=== PATIENT | male | born 1970 | race Caucasian/White ===

== ENCOUNTER → 2018-01-30 09:00 | Outpatient (CLI) | payer OTHER, SELFPAY ==
[2018-01-30 09:33] LABS: Add Manual Diff / Slide Review NO; Basophils Percent Auto 1.4 % (0-2); Eosinophils Percent Auto 1.3 % (2-4); Hematocrit 39.7 % (41-53); Hemoglobin 13.5 g/dL (13.5-17.5); Lymphocytes Percent Auto 27.1 % (25-40); Mean Corpuscular HGB Conc 33.9 % (30-36); Mean Corpuscular Hemoglobin 29.5 PG (26-34); Mean Corpuscular Volume 86.9 fL (80-100); Neutrophils Absolute Auto 3100 /uL (3000-5900); Neutrophils Percent Auto 58.2 % (50-75); Platelet Count 256 X10^3/uL (150-400); Red Blood Cell Count 4.57 X10^6/uL (4.5-5.9); Red Cell Distribution Width 12.9 % (11.6-14.8); White Blood Cell Count 5.4 X10^3/uL (4.5-11.0)
[2018-01-30 10:04] LABS: Alanine Aminotransferase 40 IU/L (21-72); Albumin 4.6 g/dL (3.5-5.0); Albumin Globulin Ratio 1.6 (1.0-2.8); Alkaline Phosphatase 79 U/L (38-126); Aspartate Aminotransferase 29 IU/L (17-59); BUN Creatinine Ratio 17.5 (6-22); Bilirubin Total 0.6 mg/dL (0.2-1.3); Blood Urea Nitrogen 14 mg/dL (9-20); Calcium 9.4 mg/dL (8.4-10.2); Carbon Dioxide 23 mmol/L (22-32); Chloride 105 mmol/L (98-107); Cholesterol 133 mg/dL (140-199); Estimated Glomerular Filt Rate > 60.0 mL/min (>60); Globulin 2.8 g/dL (1.7-4.1); Glucose 101 mg/dL (70-100); HDL Cholesterol 73 mg/dL (40-60); HEMOLYSIS < 15 (0-50); LDL Cholesterol Calculated 50 mg/dL (<100); Potassium 4.4 mmol/L (3.4-5.1); Sodium 143 mmol/L (137-145); Total Protein 7.4 g/dL (6.3-8.2); Triglycerides 48 mg/dL (35-150)
[2018-01-30 10:31] LABS: Prostate Specific Antigen Scrn 1.47 ng/mL (0.1-4.0)
[2018-01-30 10:34] LABS: Thyroid Stimulating Hormone 1.18 uIU/mL (0.47-4.68)
== END ==
PROVIDERS: PCP Family Medicine; Visit Provider Family Medicine
DX: Z00.00 Encounter for general adult medical examination without abnormal findings (principal); E78.5 Hyperlipidemia, unspecified; Z12.5 Encounter for screening for malignant neoplasm of prostate
CPT/HCPCS: 36415; 80053; 80061; 84443; 85025; G0103

== ENCOUNTER → 2018-05-13 16:26 | Outpatient (CLI) | payer OTHER, SELFPAY ==
--- NOTE | 2018-05-13 16:36 | DI.RAD.S_ITS ---
PROCEDURE: XR FINGER LT MIN 2V INDICATIONS: foreign body visualization TECHNIQUE: AP hand, 2 views of the 2nd finger(s) acquired. COMPARISON: None. FINDINGS: Bones: There is a fishhook seen along the dorsal radial aspect of the distal interphalangeal joint of the 2nd finger. No definite bony involvement is seen. Soft tissues: No suspicious soft tissue calcifications. IMPRESSION: [place] involving the distal left 2nd finger, which does not appear to involve bone. Dictated by: Callum Chadwick M.D. on 05/13/2018 at 16:53 Approved by: Callum Chadwick M.D. on 05/13/2018 at 16:54
== END ==
PROVIDERS: Family Provider Family Medicine; PCP Family Medicine; Visit Provider Physician Assistant
DX: S60.451A Superficial foreign body of left index finger, initial encounter (principal)
CPT/HCPCS: 73140

== ENCOUNTER → 2019-09-30 11:05 | Outpatient (CLI) | payer OTHER, SELFPAY ==
[2019-09-30 12:38] LABS: Alanine Aminotransferase 83 IU/L (<50); Albumin Globulin Ratio 1.6 (1.0-2.8); Alkaline Phosphatase 79 U/L (38-126); Aspartate Aminotransferase 63 IU/L (17-59); BUN Creatinine Ratio 16.7 (6-22); Bilirubin Total 0.8 mg/dL (0.2-1.3); Blood Urea Nitrogen 15 mg/dL (9-20); Calcium 9.8 mg/dL (8.4-10.2); Carbon Dioxide 25 mmol/L (22-32); Chloride 102 mmol/L (98-107); Cholesterol 163 mg/dL (140-199); Estimated Glomerular Filt Rate > 60.0 mL/min (>60); Globulin 3.2 g/dL (1.7-4.1); Glucose 104 mg/dL (70-100); HDL Cholesterol 48 mg/dL (40-60); HEMOLYSIS < 15 (0-50); LDL Cholesterol Calculated 97 mg/dL (<100); Potassium 4.1 mmol/L (3.4-5.1); Sodium 141 mmol/L (137-145); Total Protein 8.2 g/dL (6.3-8.2); Triglycerides 91 mg/dL (35-150)
[2019-09-30 12:39] LABS: Add Manual Diff / Slide Review NO; Basophils Absolute Auto 100 /uL (0-100); Basophils Percent Auto 1.4 % (0-2); Eosinophils Absolute Auto 100 /uL (0-450); Eosinophils Percent Auto 1.3 % (2-4); Hematocrit 40.8 % (41-53); Lymphocytes Absolute Auto 1400 /uL (1100-4500); Lymphocytes Percent Auto 27.9 % (25-40); Mean Corpuscular HGB Conc 34.4 % (30-36); Mean Corpuscular Hemoglobin 29.8 PG (26-34); Mean Corpuscular Volume 86.5 fL (80-100); Monocytes Absolute Auto 700 /uL (0-900); Neutrophils Absolute Auto 2800 /uL (1500-7000); Neutrophils Percent Auto 56.4 % (50-75); Platelet Count 232 X10^3/uL (150-400); Red Blood Cell Count 4.72 X10^6/uL (4.5-5.9); Red Cell Distribution Width 13.1 % (11.6-14.8)
[2019-09-30 13:02] LABS: Prostate Specific Antigen Scrn 1.62 ng/mL (0.1-4.0)
== END ==
PROVIDERS: Family Provider Family Medicine; PCP Family Medicine; Referring Provider Family Medicine; Visit Provider Family Medicine
DX: Z00.00 Encounter for general adult medical examination without abnormal findings (principal); E78.5 Hyperlipidemia, unspecified; Z12.5 Encounter for screening for malignant neoplasm of prostate; Z13.0 Encounter for screening for diseases of the blood and blood-forming organs and certain disorders involving the immune mechanism; Z13.1 Encounter for screening for diabetes mellitus; Z13.6 Encounter for screening for cardiovascular disorders
CPT/HCPCS: 36415; 80053; 80061; 85025; G0103

== ENCOUNTER → 2020-07-31 08:25 | Outpatient (CLI) | payer OTHER, SELFPAY ==
[2020-07-31 09:21] LABS: Add Manual Diff / Slide Review NO; Basophils Absolute Auto 100 /uL (0-100); Basophils Percent Auto 1.5 % (0-2); Eosinophils Absolute Auto 100 /uL (0-450); Eosinophils Percent Auto 2.5 % (2-4); Hematocrit 39.4 % (41-53); Hemoglobin 13.1 g/dL (13.5-17.5); Lymphocytes Absolute Auto 1400 /uL (1100-4500); Lymphocytes Percent Auto 27.6 % (25-40); Mean Corpuscular HGB Conc 33.2 % (30-36); Mean Corpuscular Volume 87.4 fL (80-100); Monocytes Absolute Auto 600 /uL (0-900); Monocytes Percent Auto 11.1 % (3-14); Neutrophils Absolute Auto 2900 /uL (1500-7000); Neutrophils Percent Auto 57.3 % (50-75); Platelet Count 230 X10^3/uL (150-400); Red Blood Cell Count 4.51 X10^6/uL (4.5-5.9); Red Cell Distribution Width 13.1 % (11.6-14.8); White Blood Cell Count 5.1 X10^3/uL (4.5-11.0)
[2020-07-31 09:37] LABS: Alanine Aminotransferase 36 IU/L (<50); Albumin 4.5 g/dL (3.5-5.0); Albumin Globulin Ratio 1.6 (1.0-2.8); Alkaline Phosphatase 86 U/L (38-126); Aspartate Aminotransferase 31 IU/L (17-59); BUN Creatinine Ratio 17.1 (6-22); Bilirubin Total 0.5 mg/dL (0.2-1.3); Blood Urea Nitrogen 14 mg/dL (9-20); Calcium 9.4 mg/dL (8.4-10.2); Carbon Dioxide 25 mmol/L (22-32); Chloride 107 mmol/L (98-107); Cholesterol 141 mg/dL (140-199); Estimated Glomerular Filt Rate > 60.0 mL/min (>60); Globulin 2.8 g/dL (1.7-4.1); Glucose 111 mg/dL (70-100); HDL Cholesterol 63 mg/dL (40-60); HEMOLYSIS < 15 (0-50); LDL Cholesterol Calculated 63 mg/dL (<100); Potassium 4.2 mmol/L (3.4-5.1); Sodium 140 mmol/L (137-145); Total Protein 7.3 g/dL (6.3-8.2); Triglycerides 73 mg/dL (35-150)
[2020-07-31 10:02] LABS: Prostate Specific Antigen Scrn 1.41 ng/mL (0.1-4.0)
== END ==
PROVIDERS: Family Provider Family Medicine; PCP Family Medicine; Referring Provider Family Medicine; Visit Provider Family Medicine
DX: Z12.5 Encounter for screening for malignant neoplasm of prostate (principal); E78.5 Hyperlipidemia, unspecified; Z13.6 Encounter for screening for cardiovascular disorders
CPT/HCPCS: 36415; 80053; 80061; 85025; G0103

== ENCOUNTER → 2020-08-07 09:51 | Outpatient (CLI) | payer OTHER, SELFPAY | PROVIDERS: Family Provider Family Medicine; PCP Family Medicine; Referring Provider Family Medicine; Visit Provider Family Medicine | DX: R73.9 Hyperglycemia, unspecified (principal) | CPT/HCPCS: 36415; 83036 ==

== ENCOUNTER → 2020-11-01 10:09 | Outpatient (CLI) | payer OTHER, SELFPAY ==
[2020-11-01 11:15] LABS: Add Manual Diff / Slide Review NO; Basophils Absolute Auto 100 /uL (0-100); Basophils Percent Auto 1.8 % (0-2); Eosinophils Absolute Auto 100 /uL (0-450); Eosinophils Percent Auto 1.5 % (2-4); Hematocrit 42.6 % (41-53); Hemoglobin 14.2 g/dL (13.5-17.5); Lymphocytes Absolute Auto 1200 /uL (1100-4500); Lymphocytes Percent Auto 24.5 % (25-40); Mean Corpuscular HGB Conc 33.2 % (30-36); Mean Corpuscular Hemoglobin 29.3 PG (26-34); Mean Corpuscular Volume 88.2 fL (80-100); Monocytes Absolute Auto 700 /uL (0-900); Monocytes Percent Auto 14.7 % (3-14); Neutrophils Absolute Auto 2900 /uL (1500-7000); Neutrophils Percent Auto 57.5 % (50-75); Platelet Count 247 X10^3/uL (150-400); Red Blood Cell Count 4.83 X10^6/uL (4.5-5.9); Red Cell Distribution Width 13.2 % (11.6-14.8)
[2020-11-01 12:03] LABS: TSH w/ Reflex to FT4 1.88 uIU/mL (0.47-4.68)
== END ==
PROVIDERS: Family Provider Family Medicine; PCP Family Medicine; Referring Provider Family Medicine; Visit Provider Family Medicine
DX: R00.2 Palpitations (principal)
CPT/HCPCS: 36415; 84443; 85025

== ENCOUNTER → 2020-11-07 09:33 | Outpatient (CLI) | payer OTHER, SELFPAY ==
[2020-11-08 08:45] LABS: Fecal Immunochemical Test Negative (Negative)
--- NOTE | 2020-12-05 11:10 | PM.CARDMON.1 ---
Distance Learning Technician Report Referral & Results Date Patient Seen: 11/07/20 Requesting provider: Tez Alberts Indication: Palpitations Duration of monitoring (days): 14 Diary information: there were 24 patient triggered events and no patient diary entries Patient triggered events were associated with (within 45 seconds) sinus rhythm, PVCs, and ventricular trigeminy Data: minimum heart rate identified was 51 beats per minute at 06:38 on 11/11/2020 Maximum heart rate was 165 beats per minute at 06:48 on 11/13/2020 Less than 1% of identified beats were ventricular or supraventricular ectopic in origin, which would classify them as rare. 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 Given patient triggered events patient's symptoms may well be due to PVCs although these were rare during this monitoring period.
== END ==
PROVIDERS: Family Provider Family Medicine; PCP Family Medicine; Referring Provider Family Medicine; Visit Provider Family Medicine
DX: R00.2 Palpitations (principal); R73.9 Hyperglycemia, unspecified
CPT/HCPCS: 82274; 93246; 93248

== ENCOUNTER → 2020-12-18 09:04 | Outpatient (CLI) | payer OTHER, SELFPAY ==
[2020-12-18 10:29] LABS: COVID19 -Nasal RAPID Negative (Negative)
== END ==
PROVIDERS: Family Provider Family Medicine; PCP Family Medicine; Visit Provider Specialist
DX: Z20.822 Contact with and (suspected) exposure to COVID-19 (principal)
CPT/HCPCS: 87635; C9803

== ENCOUNTER 2020-12-19 06:40 | Day surgery (SDC) | payer OTHER, SELFPAY ==
[2020-12-18 08:20] VITALS: BMI 32.3
[2020-12-19] VITALS (25 sets, daily range): BP systolic 128–158; BP diastolic 83–94; PULSE 64–86; RESP 12–19; TEMP 36.2–37.3; O2SAT 94–98; BMI 30.9
--- NOTE | 2020-12-19 | PATH_ITS ---
[facility] Accession Number: [id number] . 01 Material submitted: . PART A: hemorrhoids - LEFT LATERAL HEMORRHOID PART B: hemorrhoids - RIGHT LATERAL HEMORRHOID PART C: hemorrhoids - ANTERIOR MIDLINE HEMORRHOID PART D: hemorrhoids - POSTERIOR MIDLINE HEMORRHOID . 02 Diagnosis: A. Left Lateral Hemorrhoid, Biopsy: Consistent with hemorrhoidal tissue. No evidence of neoplasia. . B. Right Lateral Hemorrhoid, Biopsy: Consistent with hemorrhoidal tissue. No evidence of neoplasia. . C. Anterior Midline Hemorrhoid, Biopsy: Consistent with hemorrhoidal tissue. No evidence of neoplasia. . D. Posterior Midline Hemorrhoid, Biopsy: Consistent with hemorrhoidal tissue. No evidence of neoplasia. [facility] 12/25/2020 1109 Local . 02 Electronically signed: . Nancy Neville MD, Pathologist NPI- [id number] . 01 Gross description: . Part A: LEFT LATERAL HEMORRHOID: Received in formalin is 1 fragment of marquez soft tissue measuring 2.0 x 1.5 x 1.8 cm. Tissue is inked. Specimen is sectioned and submitted in technical services representative sections in 1 cassette. Part B: RIGHT LATERAL HEMORRHOID: Received in formalin is 1 fragment of marquez soft tissue measuring 2.4 x 1.5 x 0.6 cm. Tissue is inked. Specimen is sectioned and submitted in technical services representative sections in 1 cassette. Part C: ANTERIOR MIDLINE HEMORRHOID: Received in formalin is 1 fragment of marquez soft tissue measuring 2.0 x 1.0 x 1.1 cm. Tissue is inked. Specimen is sectioned and submitted in technical services representative sections in 1 cassette. Part D: POSTERIOR MIDLINE HEMORRHOID: Received in formalin is 1 fragment of marquez soft tissue measuring 2.2 x 1.1 x 0.6 cm. Tissue is inked. Specimen is sectioned and submitted in technical services representative sections in 1 cassette. /ELVIN 12/21/2020 [facility]3 Local . 02 Pathologist provided ICD-10: K64.9 . 02 CPT . 762883, 268647, 465564, 348988 Performed at: 01 [facility] [address] [id number] MD Franc Dudley MD Phone: [phone] Performed at: 02 [facility] [address] [place] [id number] MD Nancy Neville MD Phone: [phone]
[2020-12-19] MEDS: LACTATED RINGERS 1,000 ML 42 ML IV (07:30)
[2020-12-19] MEDS: ACETAMINOPHEN 325 MG TABLET 975 MG PO (07:30)
--- NOTE | 2020-12-19 07:39 | PM.PREOP ---
Pre-operative Note COVID-19 COVID-19 status: Negative Result date/Date tested (Pos, Neg/Pending): 12/18/20 Interval Note History & Physical reviewed/Exam performed by Physician: Yes Changes to H&P: No
--- NOTE | 2020-12-19 08:19 | SUR.OPER ---
Prone on padded OR bed, head in foam head support, gel chest rolls, gel pad under knees, pillow under lower legs, toes free of pressure, arms secured on padded arm boards at <90 degrees abduction. Safety belt at thigh.
[2020-12-19] MEDS: LIDOCAINE 1% W/EPI 20 ML INJ (08:29)
[2020-12-19] MEDS: DIBUCAINE 1% OINT 28 GM 1 APPLIC TOP (08:32)
--- NOTE | 2020-12-19 09:25 | P.OP_ITS ---
Operative Date/Time/Diagnoses Date of procedure: 12/19/20 Time of procedure: 09:25 Pre-op diagnosis: Internal and external hemorrhoids. Post-op diagnosis: same Procedure & Clinicians Procedure: Four column hemorrhoidectomy Same procedure as scheduled: Yes Indications: Large external and internal hemorrhoids. Surgeon: Wally Duarte Click Yes if Unassisted: Yes Anesthesia Type: General Operative Notes Findings: Four columns removed. See details below. Closure Type: not applicable Specimen(s): other (Hemorrhoids) Prosthetic devices, grafts, tissues, transplants, or devices: None Estimated Blood Loss (mL): 150 Blood products transfused: none Procedure in detail: Patient is placed back knife prone on the operating room table after undergoing general endotracheal anesthesia. He was prepped and drap ed in the usual fashion. Visibly add very large external hemorrhoids. No palpable masses on rectal exam. Circumferential exam with an a bivalve anoscope showed for large columns of hemorrhoids. These were located in the anterior and posterior midline and in the right lateral and left lateral locations. Beginning with the largest in the left lateral location a 2 0 Vicryl was placed at the head of the hemorrhoidal column. Incision was made in the anal derm to preserve as much as possible but to remove the large tag that was present. The hemorrhoid was dissected off the underlying sphincter muscle and was excised. The defect created was closed with a running 2-0 Vicryl which had been placed at the head of the column. Attention was turned to the other 3 columns. These were removed in an identical fashion to the 1st. Closure was in an identical fashion as well. After irrigating additional sutures were placed to control any bleeding. This was using 2 0 Vicryl. I re-prepped the perianal skin with Betadine and injected a total of 20 cc of 1% lidocaine with epinephrine in the operative areas. There was no ongoing bleeding. Dressing was applied after inserting Nupercainal on Gelfoam into the anal canal. Patient was placed back on his stretcher, extubated taken recovery room good condition. Complications: none Post-operative Condition: stable Disposition: PACU Plan for aftercare: Follow-up in the office
[2020-12-19] MEDS: hydrOXYzine pamoate 25 MG CAPSULE PO (09:34)
[2020-12-19] MEDS: ONDANSETRON 4 MG/2 ML INJ IV (09:34)
[2020-12-19] MEDS: OXYCODONE IR 5 MG TABLET PO ×2 (09:35→10:05)
--- NOTE | 2020-12-19 09:51 | SUR.PHASEI ---
Addendum entered by Beulah Pearson R.N. 12/19/20 10:13: injury is to bilat. cheeks on face. Original Note: 0921 pt. arrived to phase 1 and was noted by anesthesiologist and this nurse to have some small, scattered, red surface abrasions from the tape for the ETT. no acute distress, no blistering, no bruising. ongoing monitoring.
[2020-12-19] MEDS: HYDROMORPHONE 2 MG INJ IV ×2 (10:33→11:01)
--- NOTE | 2020-12-19 10:42 | SUR.PHASEI ---
1025 pt. returned to phase 1 due to needing a dose of IV pain meds.
--- NOTE | 2020-12-19 10:59 | SUR.PHASEI ---
1036 - Pt returned to PACU for pain control.
--- NOTE | 2020-12-19 11:33 | SUR.PHASEI ---
1131 transferred back to phase 2, pt. report much relief of rectal pain, states 10/31, he wants to go home and sleep. ongoing monitoring until discharged.
== END 2020-12-19 11:54 | disposition home or self-care (01) ==
PROVIDERS: Family Provider Family Medicine; PCP Family Medicine; Referring Provider Family Medicine; Visit Provider Specialist
PROC: (CPT 46260; principal; 2020-12-19 07:45)
DX: K64.4 Residual hemorrhoidal skin tags (principal); K64.8 Other hemorrhoids; E78.00 Pure hypercholesterolemia, unspecified; G47.30 Sleep apnea, unspecified; Z87.891 Personal history of nicotine dependence
CPT/HCPCS: 46260; J0330; J1100; J1170; J2250; J2405; J2704; J3010

== ENCOUNTER → 2021-03-19 10:12 | Outpatient (CLI) | payer OTHER, SELFPAY ==
[2021-03-19 10:59] LABS: COVID19 -Nasal RAPID Negative (Negative)
== END ==
PROVIDERS: Family Provider Family Medicine; PCP Family Medicine; Visit Provider Specialist
DX: Z20.822 Contact with and (suspected) exposure to COVID-19 (principal)
CPT/HCPCS: 87635; C9803

== ENCOUNTER 2021-03-22 12:26 | Day surgery (SDC) | payer OTHER, SELFPAY ==
[2021-03-12 14:23] VITALS: BMI 32.1
[2021-03-22] VITALS (9 sets, daily range): BP systolic 126–153; BP diastolic 81–99; PULSE 60–76; RESP 9–18; TEMP 36.4–37; O2SAT 98–100; BMI 32.1
[2021-03-22] MEDS: LACTATED RINGERS 1,000 ML 100 ML IV (12:55)
--- NOTE | 2021-03-22 13:53 | PM.PREOP ---
Pre-operative Note COVID-19 COVID-19 status: Negative Result date/Date tested (Pos, Neg/Pending): 03/21/21 Interval Note History & Physical reviewed/Exam performed by Physician: Yes Changes to H&P: No
[2021-03-22] MEDS: BUPIVACAINE 0.25% W/ EPI 30 ML VIAL INJ (14:20)
[2021-03-22] MEDS: DIBUCAINE 1% OINT 28 GM 1 APPLIC TOP (14:21)
--- NOTE | 2021-03-22 14:54 | SUR.PHASEI ---
Dozing intermittently, denies pain/nausea. Encouraged to sleep since he just arrived in the PACU. Resp unlabored
--- NOTE | 2021-03-22 14:54 | PM.OP.1 ---
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 Same procedure as scheduled: Yes Indications: Chronic drainage after and hemorrhoidectomy. Had a nonhealing area and was suspected to have a fistula. 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 Superficial in nature. Closure Type: not applicable Prosthetic devices, grafts, tissues, transplants, or devices: None Estimated Blood Loss (mL): 10 Blood products transfused: none Procedure in detail: Patient was placed active prone on the operating room table after undergoing general endotracheal anesthesia. He was prepped and draped in the usual fashion. Digital exam was unremarkable except for some slight hardening in the posterior right midline. The hip bivalve anoscope was inserted and circumferential exam performed. The obvious Param location of the fistula was seen in to the right of the posterior midline. Langston soak was inserted and dropped out through an opening in the skin. There did not appear to be any muscle associated with this. I divided the skin bridge. I scraped the base of this fistula tract with gauze. There were some raised areas of skin from his prior hemorrhoidectomy which I simply excised to flatten the mouth. Local anesthetic was infiltrated and Nupercainal on Gelfoam was inserted in the anus. Dressing was applied the patient was placed back in his bed extubated taken recovery room good condition. Complications: none Post-operative Condition: stable Disposition: PACU
[2021-03-22] MEDS: OXYCODONE/ACETAMINOPHEN 5/325 TABLET 1 TAB PO (15:18)
[2021-03-22] MEDS: BENZOCAINE/MENTHOL 1 LOZ PKT 1 EACH PO (15:19)
== END 2021-03-22 16:14 | disposition home or self-care (01) ==
PROVIDERS: Family Provider Family Medicine; PCP Family Medicine; Referring Provider Specialist; Visit Provider Specialist
PROC: (CPT 46275; principal; 2021-03-22 13:45)
DX: K60.3 Anal fistula (principal); Z98.890 Other specified postprocedural states; G47.33 Obstructive sleep apnea (adult) (pediatric); E66.9 Obesity, unspecified
CPT/HCPCS: 46275; J0330; J1100; J2405; J2704; J3010

== ENCOUNTER → 2021-10-03 07:46 | Outpatient (CLI) | payer OTHER, SELFPAY ==
[2021-10-03 08:18] LABS: Add Manual Diff / Slide Review NO; Basophils Absolute Auto 0 /uL (0-100); Basophils Percent Auto 0.8 % (0-2); Eosinophils Absolute Auto 200 /uL (0-450); Eosinophils Percent Auto 3.2 % (2-4); Hematocrit 40.1 % (41-53); Hemoglobin 13.5 g/dL (13.5-17.5); Lymphocytes Absolute Auto 1500 /uL (1100-4500); Lymphocytes Percent Auto 29.8 % (25-40); Mean Corpuscular HGB Conc 33.6 % (30-36); Mean Corpuscular Hemoglobin 29.1 PG (26-34); Mean Corpuscular Volume 86.7 fL (80-100); Monocytes Absolute Auto 700 /uL (0-900); Monocytes Percent Auto 14.7 % (3-14); Neutrophils Absolute Auto 2600 /uL (1500-7000); Neutrophils Percent Auto 51.5 % (50-75); Platelet Count 251 X10^3/uL (150-400); Red Blood Cell Count 4.62 X10^6/uL (4.5-5.9); Red Cell Distribution Width 13.4 % (11.6-14.8)
[2021-10-03 08:33] LABS: Alanine Aminotransferase 47 IU/L (<50); Albumin 4.9 g/dL (3.5-5.0); Albumin Globulin Ratio 1.7 (1.0-2.8); Alkaline Phosphatase 84 U/L (38-126); Aspartate Aminotransferase 37 IU/L (17-59); BUN Creatinine Ratio 18.4 (6-22); Bilirubin Total 0.5 mg/dL (0.2-1.3); Blood Urea Nitrogen 16 mg/dL (9-20); Calcium 9.8 mg/dL (8.4-10.2); Carbon Dioxide 26 mmol/L (22-32); Chloride 105 mmol/L (98-107); Cholesterol 163 mg/dL (140-199); Estimated Glomerular Filt Rate > 60.0 mL/min (>60); Globulin 2.9 g/dL (1.7-4.1); Glucose 102 mg/dL (70-100); HDL Cholesterol 84 mg/dL (40-60); HEMOLYSIS < 15 (0-50); LDL Cholesterol Calculated 65 mg/dL (<100); Potassium 4.4 mmol/L (3.4-5.1); Sodium 141 mmol/L (137-145); Total Protein 7.8 g/dL (6.3-8.2); Triglycerides 68 mg/dL (35-150)
== END ==
PROVIDERS: Family Provider Family Medicine; PCP Family Medicine; Referring Provider Family Medicine; Visit Provider Family Medicine
DX: D64.9 Anemia, unspecified (principal); Z00.00 Encounter for general adult medical examination without abnormal findings; E78.5 Hyperlipidemia, unspecified
CPT/HCPCS: 36415; 80053; 80061; 85025

== ENCOUNTER → 2022-03-25 09:08 | Outpatient (CLI) | payer OTHER, SELFPAY ==
[2022-03-25 11:09] LABS: Cholesterol 192 mg/dL (140-199); HDL Cholesterol 68 mg/dL (40-60); LDL Cholesterol Calculated 93 mg/dL (<100); Triglycerides 156 mg/dL (35-150)
== END ==
PROVIDERS: Family Provider Family Medicine; PCP Family Medicine; Referring Provider Family Medicine; Visit Provider Family Medicine
DX: E78.5 Hyperlipidemia, unspecified (principal); R73.9 Hyperglycemia, unspecified
CPT/HCPCS: 36415; 80061

== ENCOUNTER → 2023-07-20 09:05 | Outpatient (CLI) | payer OTHER, SELFPAY ==
[2023-07-20 10:06] LABS: Add Manual Diff / Slide Review NO; Basophils Absolute Auto 100 /uL (0-100); Eosinophils Absolute Auto 100 /uL (0-450); Eosinophils Percent Auto 2.4 % (2-4); Hematocrit 40.3 % (41-53); Hemoglobin 13.6 g/dL (13.5-17.5); Lymphocytes Absolute Auto 1200 /uL (1100-4500); Lymphocytes Percent Auto 25.4 % (25-40); Mean Corpuscular HGB Conc 33.8 % (30-36); Mean Corpuscular Hemoglobin 29.8 PG (26-34); Mean Corpuscular Volume 88.1 fL (80-100); Monocytes Absolute Auto 600 /uL (0-900); Monocytes Percent Auto 11.6 % (3-14); Neutrophils Absolute Auto 2900 /uL (1500-7000); Neutrophils Percent Auto 58.6 % (50-75); Platelet Count 231 X10^3/uL (150-400); Red Blood Cell Count 4.57 X10^6/uL (4.5-5.9); Red Cell Distribution Width 13.2 % (11.6-14.8); White Blood Cell Count 4.9 X10^3/uL (4.5-11.0)
[2023-07-20 10:10] LABS: Hemoglobin A1C% w Est Avg Glu 5.6 % (4.0-6.0)
[2023-07-20 10:39] LABS: Alanine Aminotransferase 30 IU/L (<50); Albumin 4.7 g/dL (3.5-5.0); Albumin Globulin Ratio 1.7 (1.0-2.8); Alkaline Phosphatase 68 U/L (38-126); Aspartate Aminotransferase 27 IU/L (17-59); BUN Creatinine Ratio 18.8 (6-22); Bilirubin Total 0.8 mg/dL (0.2-1.3); Blood Urea Nitrogen 15 mg/dL (9-20); Carbon Dioxide 24 mmol/L (22-32); Chloride 105 mmol/L (98-107); Cholesterol 164 mg/dL (140-199); Estimated Glomerular Filt Rate > 60 mL/min (>60); Globulin 2.8 g/dL (1.7-4.1); Glucose 101 mg/dL (70-100); HDL Cholesterol 77 mg/dL (40-60); HEMOLYSIS < 15 (0-50); LDL Cholesterol Calculated 73 mg/dL (<100); Potassium 4.4 mmol/L (3.4-5.1); Sodium 137 mmol/L (137-145); Total Protein 7.5 g/dL (6.3-8.2); Triglycerides 72 mg/dL (35-150)
== END ==
PROVIDERS: Family Provider Family Medicine; PCP Family Medicine; Referring Provider Family Medicine; Visit Provider Family Medicine
DX: R73.9 Hyperglycemia, unspecified (principal); E78.2 Mixed hyperlipidemia
CPT/HCPCS: 36415; 80053; 80061; 83036; 85025

== ENCOUNTER → 2023-09-21 07:12 | Outpatient (CLI) | payer OTHER, SELFPAY ==
[2023-09-21 08:26] LABS: Cholesterol 151 mg/dL (140-199); HDL Cholesterol 67 mg/dL (40-60); LDL Cholesterol Calculated 68 mg/dL (<100); Triglycerides 78 mg/dL (35-150)
[2023-09-22 03:14] LABS: Apolipoprotein B 57 mg/dL (<90)
[2023-09-23 12:14] LABS: Lipoprotein (a) 14.9 nmol/L (<75.0)
== END ==
PROVIDERS: Family Provider Family Medicine; PCP Family Medicine; Referring Provider Family Medicine; Visit Provider Family Medicine
DX: R73.9 Hyperglycemia, unspecified (principal); E78.5 Hyperlipidemia, unspecified
CPT/HCPCS: 36415; 80061; 82172; 83695

== ENCOUNTER 2023-12-15 08:06 | Day surgery (SDC) | payer OTHER, SELFPAY ==
--- NOTE | 2023-12-15 | PATH_ITS ---
[facility] Accession Number: [id number] No. of containers..01 Tissue . 01 Material submitted: . colon - TRANSVERSE POLYP . 01 Diagnosis: A. TRANSVERSE COLON POLYP, POLYPECTOMY: Tubular adenoma. [facility] 12/22/2023 1306 Local . 01 Electronically signed: . Shana Guaman MD, Pathologist NPI- [id number] . 01 Gross description: . TRANSVERSE POLYP: Received in formalin are multiple fragment(s) of marquez, soft tissue measuring 0.1 x 0.1 x 0.1 cm to 0.3 x 0.2 x 0.2 cm submitted entirely in 1 cassette(s) /ELVIN 12/16/2023 2253 Local . 01 Pathologist provided ICD-10: D12.6 . 01 CPT . 387694 Specimen Comment: A courtesy copy of this report has been sent to [phone] Performed at: 01 [facility] [address] [place] [address] [address] [facility], [place], [place] [id number] MD Franc Dudley MD Phone: [phone]
[2023-12-15 09:00] VITALS: BP 125/81; PULSE 66; RESP 16; TEMP 36.9; O2SAT 99
--- NOTE | 2023-12-15 09:16 | PM.HP.1 ---
History of Present Illness History of Present Illness Date Patient Seen: 12/15/23 Time Patient Seen: 09:17 Chief complaint: Colonoscopy Narrative: 53-year-old man here for 1st time screening colonoscopy. No family history of intestinal malignancy. No abdominal concerns today. [facility] Medical History Hyperlipidemia Vision disorder Anemia Palpitations Sleep apnea High cholesterol Diastasis recti Surgical History Hx of hemorrhoidectomy (12/19/20) Anesthesia History of oral surgery Family History Father Heart disease Diabetes mellitus Hyperlipidemia Mother Diabetes mellitus Sister Accident Social History marital status: household members: spouse occupational status: employed Smoking Status: Never smoker alcohol intake: current substance use type: does not use Meds Home Medications and Allergies Home Medications Medication Instructions Recorded Confirmed Type rosuvastatin 10 mg tablet 10 mg PO DAILY #90 tabs 07/24/23 07/24/23 Rx peg 3350-sod sulf,kdyai-vlc-mkg 1,000 ml PO DIRECTED #2,000 mL 11/06/23 Rx 178.7-7.3-0.5-1.12-0.9 gram oral soln (Suflave) Allergies Allergy/AdvReac Type Severity Reaction Status Date / Time No Known Drug Allergies Allergy Verified 08/06/23 18:40 Exam Vital Signs (past 8 hours): - 12/15/23 09:00 Temperature 98.4 F Pulse Rate 66 Respiratory Rate 16 Blood Pressure 125/81 Pulse Oximetry 99 Oxygen Delivery Method Room Air Oxygen Delivery Method Room Air Narrative Exam Narrative: General adult man alert oriented no acute distress Chest nonlabored respiration Extremities warm well perfused Assessment & Plan Assessment & Plan narrative: The patient requires colorectal screening and colonoscopy is recommended. Technical details were discussed. Risks, benefits, alternatives explained. Risks including but not limited to myocardial infarction, aspiration, bleeding, pain, missed lesion, incomplete examination, need for further radiographic studies, intestinal injury, and need for major abdominal surgery were discussed. All questions were answered to their satisfaction, and they are in agreement with this plan.
--- NOTE | 2023-12-15 09:17 | P.OP.COLON_ITS ---
Operative Date/Time/Diagnoses Date of procedure: 12/15/23 Time of procedure: 09:54 Pre-op diagnosis: Colorectal screening Procedure & Clinicians Study performed: Colonoscopy and polypectomy Same procedure as scheduled: Yes Indications: Colorectal screening Surgeon: Rafael Voss Procedure Notes Procedure in detail: The history and physical was performed/updated and the patient is ASA class is 2. The procedure was discussed in detail with the patient. Potential risks complications including infection, bleeding, missed diagnosis, perforation, need for surgery, and were explained. Their questions were answered and informed consent was obtained. Patient was brought to the procedure room and placed standard monitoring equipment. The patient's vital signs were monitored continuously throughout the entire procedure. Prior to starting time-out was performed. The patient was placed in the left lateral recumbent position. Procedural sedation was administered by anesthesia. Examination began with a thorough inspection of the perianal area there was no evidence of fissures, fistulae, external hemorrhoids or cutaneous malignancy. The colonoscopy scope was then placed into the anal canal and was advanced to the cecum, which was identified by the ileocecal valve, the appendiceal orifice and the confluence of the taenia. The scope was then slowly withdrawn examining colon thoroughly in all directions, irrigating it of any residual stool. The scope was retroflexed within the rectum The patient tolerated the procedure well. They will be discharged once criteria are met. The prep was of good/excellent quality. The withdrawl time was 8 min utes. FINDINGS * Transverse colon 5 mm polyp removed in pieces with forceps * Descending colon diverticulosis Specimen(s): other (Transverse colon polyp) Impression: Colonic polyp x1 Post-procedure Recommendations: High fiber diet Plan for aftercare: Follow-up is dependent on pathology findings likely 5 years Disposition: same day surgery
[2023-12-15] MEDS: LACTATED RINGERS 1,000 ML 100 ML IV (09:20)
[2023-12-15 09:49] VITALS: BP 125/84; PULSE 65; RESP 13; TEMP 35.9; O2SAT 98
[2023-12-15 09:54] VITALS: BP 122/79; PULSE 61; RESP 16; O2SAT 98
[2023-12-15 10:00] VITALS: BP 120/81; PULSE 62; RESP 12; O2SAT 99
[2023-12-15 10:03] VITALS: BP 129/90; PULSE 61; RESP 16; TEMP 36.2; O2SAT 99
[2023-12-15 10:18] VITALS: BP 125/86; PULSE 60; RESP 16; O2SAT 99
== END 2023-12-15 10:18 | disposition home or self-care (01) ==
PROVIDERS: Family Provider Family Medicine; PCP Family Medicine; Referring Provider Surgery; Visit Provider Surgery
PROC: 0DJD8ZZ Inspection of Lower Intestinal Tract, Via Natural or Artificial Opening Endoscopic (ICD-10-PCS; CPT 45378; principal; 2023-12-15 09:15)
DX: Z12.11 Encounter for screening for malignant neoplasm of colon (principal); K57.30 Diverticulosis of large intestine without perforation or abscess without bleeding; D12.3 Benign neoplasm of transverse colon
CPT/HCPCS: 45380; J2704

== ENCOUNTER → 2024-10-04 09:22 | Outpatient (CLI) | payer OTHER, SELFPAY ==
[2024-10-04 09:53] LABS: Add Manual Diff / Slide Review NO; Basophils Absolute Auto 100 /uL (0-100); Basophils Percent Auto 1.1 % (0-2); Eosinophils Absolute Auto 200 /uL (0-450); Eosinophils Percent Auto 3.4 % (2-4); Hemoglobin 13.8 g/dL (13.5-17.5); Lymphocytes Absolute Auto 1300 /uL (1100-4500); Lymphocytes Percent Auto 24.2 % (25-40); Mean Corpuscular HGB Conc 33.6 % (30-36); Mean Corpuscular Hemoglobin 29.6 PG (26-34); Mean Corpuscular Volume 88.2 fL (80-100); Monocytes Absolute Auto 600 /uL (0-900); Monocytes Percent Auto 11.6 % (3-14); Neutrophils Absolute Auto 3100 /uL (1500-7000); Neutrophils Percent Auto 59.7 % (50-75); Platelet Count 248 X10^3/uL (150-400); Red Blood Cell Count 4.65 X10^6/uL (4.5-5.9); Red Cell Distribution Width 13.2 % (11.6-14.8); White Blood Cell Count 5.2 X10^3/uL (4.5-11.0)
[2024-10-04 10:01] LABS: Hemoglobin A1C% w Est Avg Glu 5.5 % (4.0-6.0)
[2024-10-04 10:37] LABS: Alanine Aminotransferase 46 IU/L (<50); Albumin 4.9 g/dL (3.5-5.0); Albumin Globulin Ratio 1.8 (1.0-2.8); Alkaline Phosphatase 78 U/L (38-126); Aspartate Aminotransferase 39 IU/L (17-59); BUN Creatinine Ratio 15.4 (6-22); Bilirubin Total 0.6 mg/dL (0.2-1.3); Blood Urea Nitrogen 14 mg/dL (9-20); Calcium 9.5 mg/dL (8.4-10.2); Carbon Dioxide 22 mmol/L (22-32); Chloride 106 mmol/L (98-107); Cholesterol 166 mg/dL (140-199); Estimated Glomerular Filt Rate > 60 mL/min (>60); Globulin 2.7 g/dL (1.7-4.1); Glucose 118 mg/dL (70-100); HDL Cholesterol 78 mg/dL (40-60); HEMOLYSIS < 15 (0-50); LDL Cholesterol Calculated 69 mg/dL (<100); Sodium 138 mmol/L (137-145); Total Protein 7.6 g/dL (6.3-8.2); Triglycerides 97 mg/dL (35-150)
[2024-10-04 11:00] LABS: TSH w/ Reflex to FT4 2.05 uIU/mL (0.47-4.68)
[2024-10-04 11:08] LABS: Prostate Specific Antigen 1.02 ng/mL (0.10-4.00)
== END ==
PROVIDERS: Family Provider Family Medicine; PCP Family Medicine; Referring Provider Family Medicine; Visit Provider Family Medicine
DX: Z12.5 Encounter for screening for malignant neoplasm of prostate (principal); Z13.9 Encounter for screening, unspecified; R73.9 Hyperglycemia, unspecified; E78.2 Mixed hyperlipidemia; D64.9 Anemia, unspecified
CPT/HCPCS: 36415; 80053; 80061; 83036; 84153; 84443; 85025